=== PATIENT | female | born 1990 | race Caucasian/White ===

== ENCOUNTER 2022-10-09 04:53 | Inpatient (IN) ==
[2022-10-09] MEDS ORDERED: LIDOCAINE 1% LOCAL 20 ML VIAL INFIL PRN (05:08)
[2022-10-09] MEDS ORDERED: LACTATED RINGER'S 1,000 ML IV PRN (05:08)
[2022-10-09] MEDS ORDERED: OXYTOCIN 30 UNITS/500 ML BAG IV PRN ×2 (05:08→06:14)
[2022-10-09 05:34] LABS: Hemoglobin 12.5 g/dl (12.0-16.0); Mean Corpuscular Hemoglobin 29.8 pg (25.0-34.0); Mean Corpuscular Hgb Conc 33.8 g/dL (32.0-36.0); Mean Corpuscular Volume 88.3 fL (80.0-100.0); Mean Platelet Volume 10.9 fL (9.4-12.4); Platelet Count 222 K/uL (130-400); RDW Coefficient of Variation 13.8 % (11.5-14.5); RDW Standard Deviation 44.7 fL (36.4-46.3); Red Blood Count 4.19 M/uL (4.20-5.40); White Blood Count 14.93 K/ul (4.8-10.8)
--- NOTE | 2022-10-09 05:39 | History & Physical Report ---
Date of Service October 09, 2022 Assessment & Plan Admission and Anticipated Discharge Date Admission Date: October 09, 2022 History of Present Illness Chief Complaint: onset of labor Primary Care Provider: Mitra Flores MD 32 F P0000 at 38.6 weeks admitted in active labor. GBS is negative. Allergies Allergy/AdvReac Type Severity Reaction Status Date / Time minocycline Allergy Hives Verified 10/08/22 12:17 Sulfa (Sulfonamide AdvReac Hives Verified 10/08/22 12:17 Antibiotics) Home Medications Medication Instructions Recorded Confirmed Type albuterol sulfate 90 mcg/actuation inhalation BID 09/30/22 History aerosol inhaler (ProAir HFA) bupropion HCl 150 mg 24 hr tablet, 225 mg PO QAM 09/30/22 10/09/22 History extended release (Wellbutrin XL) ferrous sulfate 325 mg (65 mg 325 mg PO BID 09/30/22 10/09/22 History iron) tablet insulin detemir U-100 100 unit/mL 50 unit subcut HS 09/30/22 10/09/22 History (3 mL) subcutaneous pen (Levemir FlexPen) levothyroxine 125 mcg tablet 125 mcg PO DAILY 09/30/22 10/09/22 History pantoprazole 40 mg tablet,delayed 40 mg PO DAILY 09/30/22 10/09/22 History release venlafaxine 100 mg tablet 225 mg PO DAILY 09/30/22 10/09/22 History Patient History Medical History ADD (attention deficit disorder) Anxiety Asthma Depression Esophageal reflux Hypothyroid Hypothyroid Migraine Surgical History H/O myringotomy History of tonsillectomy and adenoidectomy No significant past surgical history Status post labral repair of shoulder 2013 [place] teeth removed Social History Smoking Status: Never smoker Hx Alcohol Use: No Hx Substance Use: No Preferred Language: Vietnamese Exec. 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 History neg Review of Systems All systems reviewed & are unremarkable except as noted in HPI & below Physical Exam Constitutional: WD/WN, vitals as above Eyes: PERRL, conjunctivae normal, anicteric sclerae Respiratory: normal respiratory effort, lungs clear to auscultation Cardiovascular: RRR, no murmur, no edema Gastrointestinal (Abdomen): Inspection/Auscultation: abdomen normal to inspection Musculoskeletal: Extremities: extremities normal to inspection Skin: no rashes, warm and dry Neurologic: patellar DTR's 2+ bilat, sensation intact Psychiatric: A+Ox3, euthymic affect Genitourinary: no vaginal lesions, no adnexal mass Manual OB Exam: + cervical dilation, + cervical effacement 100%, + station -1 and + amniotic fluid clear OB Exam Monitor Tracing: + external FHT monitor used, + external uterine monitor used, + category I and + normal FHT variability Results & Data Vital Signs (Past 12 Hours) Vital Signs Temp Pulse Resp BP 10/09/22 05:10 36.8 C 127 H 18 128/86 10/09/22 05:06 36.8 C 127 H 18 128/86 Laboratory Results 10/09/22 05:22 WBC 14.93 H RBC 4.19 L Hgb 12.5 Hct 37.0 MCV 88.3 MCH 29.8 MCHC 33.8 RDW Std Deviation 44.7 RDW Coeff of Nely 13.8 Plt Count 222 MPV 10.9 Monitoring External Monitor Cat 1 with contractions every 4 minutes
[2022-10-09] MEDS ORDERED: BENZOCAINE 20% SPRY 85 APPLN/85 GM CAN EXT PRN (06:14)
[2022-10-09] MEDS ORDERED: bisacodyL 10 MG SUPP PR PRN (06:14)
[2022-10-09] MEDS ORDERED: HYDROCORTISONE ACETATE 25 MG SUPP PR PRN (06:14)
[2022-10-09] MEDS ORDERED: ACETAMINOPHEN 325 MG TAB PO PRN (06:14)
[2022-10-09] MEDS ORDERED: DIPHTHERIA/TETANUS/PERTUSSIS Vaccine (Tdap, Age 7+yrs) 0.5mL SYR/VL IM ONE (06:14)
--- NOTE | 2022-10-09 06:14 | Delivery Summary ---
Vaginal Delivery Summary Date of Service October 09, 2022 Vaginal Delivery Summary Delivery Note live female FELTON over intact perineum with delayed cord clamping and Apgars 8/9 weight pending. Cord blood obtained followed by spontaneous delivery of intact placenta. No tears. EBL 150 ml. Final sponge and instrument count are correct. Mom and baby stable,
[2022-10-09] MEDS ORDERED: CARBOHYDRATES FOR HYPOGLYCEMIA PO PRN (08:30)
[2022-10-09] MEDS ORDERED: GLUCOSE 10 TAB/TUBE PO PRN (08:30)
[2022-10-09] MEDS ORDERED: DEXTROSE 50% 50 ML SYRINGE IV PRN (08:30)
[2022-10-09] MEDS ORDERED: GLUCOSE 40% GEL 15 GM TUBE PO PRN (08:30)
[2022-10-09] MEDS ORDERED: GLUCAGON FOR INJ 1 MG VIAL IM PRN (08:30)
[2022-10-09] MEDS: DOCUSATE SODIUM 100 MG CAP PO SCH ×2 (08:41→19:21)
[2022-10-09] MEDS: FERROUS SULFATE 325 MG TAB PO SCH (08:41)
[2022-10-09] MEDS: PRENATAL VITAMIN 1 TAB PO SCH (08:41)
[2022-10-09] MEDS: PANTOprazole 40 MG TAB PO SCH (08:43)
[2022-10-09] MEDS: VENLAFAXINE HCL 37.5 MG TAB PO SCH (08:43)
[2022-10-09] MEDS: buPROPion XL 150 MG TABCR PO SCH (08:46)
[2022-10-09] MEDS: LEVOTHYROXINE SODIUM 125 MCG TABLET PO SCH (08:59)
[2022-10-09] MEDS ORDERED: FERROUS SULFATE 325 MG TAB PO SCH (09:00)
[2022-10-09] MEDS ORDERED: ONDANSETRON INJ 2 MG/ML 2 ML VIAL IV PRN (09:32)
[2022-10-09] MEDS ORDERED: ONDANSETRON INJ 2 MG/ML 2 ML VIAL ONE (09:34)
[2022-10-09] MEDS ORDERED: LANTUS PER UNIT CHARGE SQ SCH (21:00)
[2022-10-09] MEDS: IBUPROFEN 600 MG TAB PO PRN (23:23)
[2022-10-10 06:19] LABS: Hematocrit (blood only) 29.6 % (37.0-47.0); Hemoglobin 9.9 g/dl (12.0-16.0); Mean Corpuscular Hemoglobin 29.7 pg (25.0-34.0); Mean Corpuscular Hgb Conc 33.4 g/dL (32.0-36.0); Mean Corpuscular Volume 88.9 fL (80.0-100.0); Mean Platelet Volume 11.1 fL (9.4-12.4); Platelet Count 197 K/uL (130-400); RDW Coefficient of Variation 13.7 % (11.5-14.5); RDW Standard Deviation 44.7 fL (36.4-46.3); Red Blood Count 3.33 M/uL (4.20-5.40); White Blood Count 10.92 K/ul (4.8-10.8)
[2022-10-10] MEDS: FERROUS SULFATE 325 MG TAB PO SCH (08:41)
[2022-10-10] MEDS: LEVOTHYROXINE SODIUM 125 MCG TABLET PO SCH (08:41)
[2022-10-10] MEDS: buPROPion XL 150 MG TABCR PO SCH (08:42)
[2022-10-10] MEDS: DOCUSATE SODIUM 100 MG CAP PO SCH ×2 (08:42→20:29)
[2022-10-10] MEDS: PANTOprazole 40 MG TAB PO SCH (08:42)
[2022-10-10] MEDS: VENLAFAXINE HCL 37.5 MG TAB PO SCH (08:42)
[2022-10-10] MEDS: PRENATAL VITAMIN 1 TAB PO SCH (08:45)
--- NOTE | 2022-10-10 09:39 | Obstetrical Progress Note ---
Date of Service October 10, 2022 Subjective Ambulation: ambulating normally Voiding: no voiding problems Passing Gas:: Yes Diet Tolerance:: regular diet Lochia:: Small Feeding Type:: breast feeding Current Pain Level(1-10): 0 Physical Exam Constitutional WD/WN, vitals as above Gastrointestinal (Abdomen) Inspection/Auscultation: abdomen normal to inspection Musculoskeletal Extremities: extremities normal to inspection Skin no rashes, warm and dry Neurologic patellar DTR's 2+ bilat, sensation intact Psychiatric A+Ox3, euthymic affect Results & Data Vital Signs (Past 12 Hours) Vital Signs Temp Pulse Resp BP Pulse Ox O2 Del Method 10/10/22 07:20 36.6 C 87 19 111/77 10/10/22 04:00 36.7 C 90 16 114/78 97 Room Air 10/09/22 23:00 36.5 C 99 H 16 107/71 97 Room Air Laboratory Results Laboratory Results - last 48 hr 10/09/22 10/09/22 10/10/22 05:22 05:22 05:57 WBC 14.93 H 10.92 H RBC 4.19 L 3.33 L Hgb 12.5 9.9 L Hct 37.0 29.6 L MCV 88.3 88.9 MCH 29.8 29.7 MCHC 33.8 33.4 RDW Std Deviation 44.7 44.7 RDW Coeff of Nely 13.8 13.7 Plt Count 222 197 MPV 10.9 11.1 Blood Type AB Positive Antibody Screen NEGATIVE
[2022-10-10] MEDS ORDERED: ONDANSETRON 4 MG OD TAB PO PRN (11:26)
[2022-10-10] MEDS ORDERED: bisacodyL 5 MG TABEC PO SCH (20:00)
[2022-10-11 07:05] LABS: Hematocrit (blood only) 31.5 % (37.0-47.0); Hemoglobin 10.4 g/dl (12.0-16.0)
[2022-10-11] MEDS: PRENATAL VITAMIN 1 TAB PO SCH (09:35)
[2022-10-11] MEDS: DOCUSATE SODIUM 100 MG CAP PO SCH (09:35)
[2022-10-11] MEDS: IBUPROFEN 600 MG TAB PO PRN (09:35)
[2022-10-11] MEDS: FERROUS SULFATE 325 MG TAB PO SCH (09:35)
[2022-10-11] MEDS: VENLAFAXINE HCL 37.5 MG TAB PO SCH (09:36)
[2022-10-11] MEDS: LEVOTHYROXINE SODIUM 125 MCG TABLET PO SCH (09:37)
[2022-10-11] MEDS: PANTOprazole 40 MG TAB PO SCH (09:37)
--- NOTE | 2022-10-11 10:16 | Obstetrical Progress Note ---
Date of Service October 11, 2022 Subjective Ambulation: ambulating normally Voiding: no voiding problems Passing Gas:: Yes Diet Tolerance:: regular diet Lochia:: Small Feeding Type:: breast feeding Current Pain Level(1-10): 0 doing well Physical Exam Constitutional WD/WN, vitals as above Gastrointestinal (Abdomen) Inspection/Auscultation: abdomen normal to inspection abdomen soft and non-tender fundus firm below U Musculoskeletal Extremities: extremities normal to inspection Skin no rashes, warm and dry Neurologic patellar DTR's 2+ bilat, sensation intact Psychiatric A+Ox3, euthymic affect Results & Data Vital Signs (Past 12 Hours) Vital Signs Temp Pulse Resp BP Pulse Ox O2 Del Method 10/11/22 07:29 36.6 C 76 16 112/67 94 Room Air 10/10/22 23:10 36.5 C 90 18 108/72 Laboratory Results 10/09/22 10/09/22 10/10/22 05:22 05:22 05:57 WBC 14.93 H 10.92 H RBC 4.19 L 3.33 L Hgb 12.5 9.9 L Hct 37.0 29.6 L MCV 88.3 88.9 MCH 29.8 29.7 MCHC 33.8 33.4 RDW Std Deviation 44.7 44.7 RDW Coeff of Nely 13.8 13.7 Plt Count 222 197 MPV 10.9 11.1 Blood Type AB Positive Antibody Screen NEGATIVE 10/11/22 06:43 WBC RBC Hgb 10.4 L Hct 31.5 L MCV MCH MCHC RDW Std Deviation RDW Coeff of Nely Plt Count MPV Blood Type Antibody Screen
== END 2022-10-11 12:49 | disposition home or self-care (01) | DRG 807 ==
LOC: OPB 04:53 → 4S1 04:56 → 4E2 09:25